=== PATIENT | female | born 1955 | race Two or more races ===

== ENCOUNTER → 2018-01-22 | Outpatient (CLI) | payer OTHER ==
[~2018-01-22] MED LIST: CATAFLAM50 MG PO; FIORICET 50-301 EACH PO; NEURONTIN300 MG; SYNTHROID50 MCG; TENORMIN25 MG; TESSALON PERLE100 MG PO; TUSSI PRES-B L120 M1 PO; ZITHROMAX TRI-500 MG PO
== END | disposition home or self-care (01) ==
LOC: RAD 14:33 → NUCLEAR 01-26 10:00
DX: M54.5 Low back pain (principal)

== ENCOUNTER 2018-01-26 09:21 | Outpatient (CLI) | payer OTHER | END 2018-01-26 10:00 | disposition home or self-care (01) | LOC: NUCLEAR 09:21 | DX: M81.0 Age-related osteoporosis without current pathological fracture (principal) ==

== ENCOUNTER 2018-12-13 12:14 | Outpatient (CLI) | payer OTHER | END 2018-12-13 14:49 | disposition home or self-care (01) | LOC: MAMO-SONO 12:14 | DX: Z12.31 Encounter for screening mammogram for malignant neoplasm of breast (principal); Z87.898 Personal history of other specified conditions; N64.4 Mastodynia ==

== ENCOUNTER → 2018-12-16 | Outpatient (CLI) | payer OTHER | END | disposition home or self-care (01) | LOC: NUCLEAR 10:30 | DX: I87.2 Venous insufficiency (chronic) (peripheral) (principal); I83.899 Varicose veins of unspecified lower extremity with other complications ==

== ENCOUNTER 2019-02-09 07:20 | Outpatient (CLI) | payer OTHER | END 2019-02-09 12:42 | disposition home or self-care (01) | LOC: SONOGRAMA 07:20 → MAMO-SONO 07:45 → SONOGRAMA 12:42 | DX: R60.0 Localized edema (principal); M25.562 Pain in left knee; D13.9 Benign neoplasm of ill-defined sites within the digestive system; D73.89 Other diseases of spleen; D51.3 Other dietary vitamin B12 deficiency anemia; D51.8 Other vitamin B12 deficiency anemias; E06.3 Autoimmune thyroiditis; K66.0 Peritoneal adhesions (postprocedural) (postinfection); K56.50 Intestinal adhesions [bands], unspecified as to partial versus complete obstruction; I10 Essential (primary) hypertension; E03.8 Other specified hypothyroidism; E78.49 Other hyperlipidemia; E08.65 Diabetes mellitus due to underlying condition with hyperglycemia; E04.8 Other specified nontoxic goiter; G47.33 Obstructive sleep apnea (adult) (pediatric) ==

== ENCOUNTER 2019-03-18 11:17 | Outpatient (CLI) | payer OTHER | END 2019-03-18 11:21 | disposition home or self-care (01) | LOC: MRI 11:17 | DX: S80.912A Unspecified superficial injury of left knee, initial encounter (principal); M25.562 Pain in left knee; R26.2 Difficulty in walking, not elsewhere classified | CPT/HCPCS: 73721 ==

== ENCOUNTER 2019-11-17 09:08 | Outpatient (CLI) | payer OTHER | END 2019-11-17 09:15 | disposition home or self-care (01) | LOC: SONOGRAMA 09:08 → MAMO-SONO 09:15 → SONOGRAMA 09:15 | DX: R22.1 Localized swelling, mass and lump, neck (principal) ==

== ENCOUNTER 2020-03-19 10:08 | Outpatient (CLI) | payer OTHER | END 2020-03-19 10:15 | disposition home or self-care (01) | LOC: MAMO-SONO 10:08 | PROVIDERS: ATTEND Obstetrics & Gynecology | DX: Z12.31 Encounter for screening mammogram for malignant neoplasm of breast (principal); Z87.898 Personal history of other specified conditions; N60.11 Diffuse cystic mastopathy of right breast; N60.12 Diffuse cystic mastopathy of left breast; N02.0 Recurrent and persistent hematuria with minor glomerular abnormality ==

== ENCOUNTER 2020-06-04 08:40 | Emergency (ER) | payer OTHER ==
[~2020-06-04] VITALS: Ht 160 cm; Wt 77.6 kg
[~2020-06-04 08:40] MED LIST changes: -ATENOLOL25 MG PO; -ATORVASTATIN CA10 MG PO; -GLIMEPIRIDE2 M1 PO; -GNP B-COMPLEX1 EACH PO; -IVERMECTIN3 MG PO; -JANUMET XR 1001 EACH PO; -LANSOPRAZOLE30 MG PO; -LORATADINE10 MG PO; -PEPCID AC20 MG PO; -SYMBICORT 16010.2 GM IH; -ZITHROMAX500 MG PO
[2020-06-04] MEDS ORDERED: LANSOPRAZOLE30 MG PO (08:58)
[2020-06-04] MEDS ORDERED: JANUMET XR 1001 EACH PO (08:58)
[2020-06-04] MEDS ORDERED: ATORVASTATIN CA10 MG PO (08:59)
[2020-06-04] MEDS ORDERED: GLIMEPIRIDE2 M1 PO (08:59)
[2020-06-04] MEDS ORDERED: GNP B-COMPLEX1 EACH PO (08:59)
[2020-06-04] MEDS ORDERED: LORATADINE10 MG PO (08:59)
[2020-06-04] MEDS ORDERED: ATENOLOL25 MG PO (08:59)
[2020-06-04] MEDS ORDERED: PEPCID AC20 MG PO (19:49)
[2020-06-04] MEDS ORDERED: IVERMECTIN3 MG PO (19:49)
[2020-06-04] MEDS ORDERED: SYMBICORT 16010.2 GM IH (19:49)
[2020-06-04] MEDS ORDERED: ZITHROMAX500 MG PO (19:49)
== END 2020-06-04 20:35 ==
LOC: ER 08:40
DX: U07.1 COVID-19 (principal); B34.9 Viral infection, unspecified

== ENCOUNTER → 2020-06-04 | Emergency (ER) | payer OTHER ==
[~2020-06-04] MED LIST changes: +ATENOLOL25 MG PO; +ATORVASTATIN CA10 MG PO; +GLIMEPIRIDE2 M1 PO; +GNP B-COMPLEX1 EACH PO; +IVERMECTIN3 MG PO; +JANUMET XR 1001 EACH PO; +LANSOPRAZOLE30 MG PO; +LORATADINE10 MG PO; +PEPCID AC20 MG PO; +SYMBICORT 16010.2 GM IH; +ZITHROMAX500 MG PO
== END | disposition left against medical advice (07) ==
LOC: ER 20:52
DX: Z53.21 Procedure and treatment not carried out due to patient leaving prior to being seen by health care provider (principal)

== ENCOUNTER 2020-12-11 08:53 | Outpatient (CLI) | payer OTHER ==
[~2020-12-11 08:53] MED LIST changes: +ATENOLOL25 MG PO; +ATORVASTATIN CA10 MG PO; +GLIMEPIRIDE2 M1 PO; +GNP B-COMPLEX1 EACH PO; +IVERMECTIN3 MG PO; +JANUMET XR 1001 EACH PO; +LANSOPRAZOLE30 MG PO; +LORATADINE10 MG PO; +PEPCID AC20 MG PO; +SYMBICORT 16010.2 GM IH; +ZITHROMAX500 MG PO
== END 2020-12-11 09:00 | disposition home or self-care (01) ==
LOC: SONOGRAMA 08:53 → MAMO-SONO 09:45
PROVIDERS: ATTEND General Practice
DX: E04.2 Nontoxic multinodular goiter (principal); R13.19 Other dysphagia; R63.4 Abnormal weight loss; M25.612 Stiffness of left shoulder, not elsewhere classified; Z91.81 History of falling; M25.512 Pain in left shoulder; R20.2 Paresthesia of skin; M25.532 Pain in left wrist; R22.32 Localized swelling, mass and lump, left upper limb

== ENCOUNTER 2020-12-26 09:35 | Outpatient (CLI) | payer OTHER | END 2020-12-26 09:48 | disposition home or self-care (01) | LOC: RX STUDY 09:35 | PROVIDERS: ATTEND Otolaryngology | DX: R13.13 Dysphagia, pharyngeal phase (principal) ==

== ENCOUNTER 2021-02-05 13:13 | Outpatient (CLI) | payer OTHER | END 2021-02-05 13:22 | disposition home or self-care (01) | LOC: RAD 13:13 | PROVIDERS: ATTEND General Practice | DX: S69.92XA Unspecified injury of left wrist, hand and finger(s), initial encounter (principal); M79.642 Pain in left hand; X58.XXXA Exposure to other specified factors, initial encounter; Y93.89 Activity, other specified; Y92.89 Other specified places as the place of occurrence of the external cause; Y99.8 Other external cause status ==

== ENCOUNTER 2021-04-18 07:51 | Outpatient (CLI) | payer OTHER | END 2021-04-18 08:02 | disposition home or self-care (01) | LOC: RAD 07:51 | PROVIDERS: ATTEND General Practice | DX: M79.601 Pain in right arm (principal); M81.0 Age-related osteoporosis without current pathological fracture; M25.522 Pain in left elbow; M25.521 Pain in right elbow; M79.641 Pain in right hand; R20.0 Anesthesia of skin; Z91.81 History of falling; G83.20 Monoplegia of upper limb affecting unspecified side ==

== ENCOUNTER 2021-05-22 12:45 | Outpatient (CLI) | payer OTHER | END 2021-05-22 12:55 | disposition home or self-care (01) | LOC: MAMO-SONO 12:45 | PROVIDERS: ATTEND General Practice | DX: N64.4 Mastodynia (principal); Z12.31 Encounter for screening mammogram for malignant neoplasm of breast ==

== ENCOUNTER 2021-05-22 14:10 | Outpatient (CLI) | payer OTHER | END 2021-05-22 15:16 | disposition home or self-care (01) | LOC: NUCLEAR 14:10 | PROVIDERS: ATTEND General Practice | DX: M81.0 Age-related osteoporosis without current pathological fracture (principal) ==

== ENCOUNTER 2022-02-25 09:08 | Outpatient (CLI) | payer OTHER | END 2022-02-25 09:20 | disposition home or self-care (01) | LOC: SONOGRAMA 09:08 | PROVIDERS: ATTEND General Practice | DX: R10.9 Unspecified abdominal pain (principal) ==

== ENCOUNTER 2022-02-27 07:12 | Outpatient (CLI) | payer OTHER | END 2022-02-27 08:00 | disposition home or self-care (01) | LOC: TOM 07:12 | PROVIDERS: ATTEND General Practice | DX: R55 Syncope and collapse (principal) ==

== ENCOUNTER 2022-05-27 09:52 | Outpatient (CLI) | payer OTHER | END 2022-05-27 09:57 | disposition home or self-care (01) | LOC: RAD 09:52 | PROVIDERS: ATTEND General Practice | DX: M79.642 Pain in left hand (principal) ==

== ENCOUNTER 2023-02-18 09:11 | Outpatient (CLI) | payer OTHER | END 2023-02-18 09:19 | disposition home or self-care (01) | LOC: RAD 09:11 | PROVIDERS: ATTEND General Practice | DX: Z12.31 Encounter for screening mammogram for malignant neoplasm of breast (principal); N63.0 Unspecified lump in unspecified breast; N64.4 Mastodynia; M25.532 Pain in left wrist ==

== ENCOUNTER 2023-02-19 07:56 | Outpatient (CLI) | payer OTHER | END 2023-02-19 08:00 | disposition home or self-care (01) | LOC: SONOGRAMA 07:56 | PROVIDERS: ATTEND Internal Medicine Hematology & Oncology | DX: D73.89 Other diseases of spleen (principal); Z90.81 Acquired absence of spleen; D51.3 Other dietary vitamin B12 deficiency anemia; D51.8 Other vitamin B12 deficiency anemias; E06.3 Autoimmune thyroiditis; D13.9 Benign neoplasm of ill-defined sites within the digestive system; K66.0 Peritoneal adhesions (postprocedural) (postinfection); I10 Essential (primary) hypertension; E03.9 Hypothyroidism, unspecified; E78.5 Hyperlipidemia, unspecified; E08.65 Diabetes mellitus due to underlying condition with hyperglycemia; E04.9 Nontoxic goiter, unspecified; G47.33 Obstructive sleep apnea (adult) (pediatric) ==

== ENCOUNTER → 2023-04-08 | Outpatient (CLI) | payer OTHER | END | disposition home or self-care (01) | LOC: RAD 10:19 | PROVIDERS: ATTEND General Practice | DX: M25.512 Pain in left shoulder (principal); M79.622 Pain in left upper arm ==

== ENCOUNTER 2023-12-28 08:45 | Outpatient (CLI) | payer OTHER | END 2023-12-28 08:55 | disposition home or self-care (01) | LOC: MAMO-SONO 08:45 | PROVIDERS: ATTEND General Practice | DX: N64.4 Mastodynia (principal); Z12.31 Encounter for screening mammogram for malignant neoplasm of breast ==

== ENCOUNTER 2024-04-25 08:46 | Outpatient (CLI) | payer OTHER | END 2024-04-25 09:02 | disposition home or self-care (01) | LOC: SONOGRAMA 08:46 | PROVIDERS: ATTEND Internal Medicine Gastroenterology | DX: R10.9 Unspecified abdominal pain (principal) ==

== ENCOUNTER 2025-01-18 07:18 | Outpatient (CLI) | payer OTHER | END 2025-01-18 07:21 | disposition home or self-care (01) | LOC: SONOGRAMA 07:18 | PROVIDERS: ATTEND Internal Medicine Gastroenterology | DX: R10.9 Unspecified abdominal pain (principal) ==

== ENCOUNTER 2025-03-17 12:57 | Emergency (ER) | payer OTHER ==
[~2025-03-17] VITALS: Ht 160 cm; Wt 65.8 kg
[2025-03-17] MEDS ORDERED: KETOROLAC TROMETHAMINE 30 MG VIAL ONE (14:14)
[2025-03-17] MEDS ORDERED: ORPHENADRINE CITRATE 30 MG/ML AMPUL ONE (14:14)
[2025-03-17] MEDS ORDERED: ORPHENADRINE CITRATE 30 MG/ML AMPUL IM ONE (14:15)
[2025-03-17] MEDS ORDERED: KETOROLAC TROMETHAMINE 30 MG VIAL IM ONE (14:15)
[2025-03-17] MEDS ORDERED: ADVIL DUAL ACT1 EACH PO (16:11)
[2025-03-17] MEDS ORDERED: NORFLEX100MG PO (16:11)
== END 2025-03-17 16:21 ==
LOC: ER 12:57
DX: S49.82XA Other specified injuries of left shoulder and upper arm, initial encounter (principal); S89.82XA Other specified injuries of left lower leg, initial encounter; S69.80XA Other specified injuries of unspecified wrist, hand and finger(s), initial encounter; W19.XXXA Unspecified fall, initial encounter; Y93.89 Activity, other specified; Y92.512 Supermarket, store or market as the place of occurrence of the external cause; Y99.8 Other external cause status; M25.562 Pain in left knee; M25.512 Pain in left shoulder; I10 Essential (primary) hypertension; E03.8 Other specified hypothyroidism; E11.9 Type 2 diabetes mellitus without complications; Z79.84 Long term (current) use of oral hypoglycemic drugs
CPT/HCPCS: 29105; 73030; 73130; 73560; 96372; 99283; J1885; J2360

== ENCOUNTER 2025-03-29 10:57 | Outpatient (CLI) | payer OTHER ==
[~2025-03-29 10:57] MED LIST changes: +ADVIL DUAL ACT1 EACH PO; +NORFLEX100MG PO
== END 2025-03-29 11:03 | disposition home or self-care (01) ==
LOC: SONOGRAMA 10:57
PROVIDERS: ATTEND Orthopaedic Surgery
DX: M75.102 Unspecified rotator cuff tear or rupture of left shoulder, not specified as traumatic (principal)

== ENCOUNTER 2025-05-17 08:43 | Outpatient (CLI) | payer OTHER | END 2025-05-17 08:47 | disposition home or self-care (01) | LOC: RAD 08:43 | PROVIDERS: ATTEND General Practice | DX: M79.642 Pain in left hand (principal); M79.641 Pain in right hand; M19.041 Primary osteoarthritis, right hand; M19.042 Primary osteoarthritis, left hand ==